=== PATIENT | male | born 1950 | race Caucasian/White ===

== ENCOUNTER 2019-11-16 12:46 | Inpatient (IN) | payer MEDICARE, OTHER ==
[~2019-11-16] VITALS: Ht 180.3 cm; Wt 88.6 kg
[~2019-11-16 12:46] MED LIST: FINA5TAB12 PO; FLO0.4C PO; LISI10TA4 PO
[2019-11-16 13:13] LABS: BASOPHILS # (AUTO) 0.1 X10'3 (0-0.2); BASOPHILS % (AUTO) 0.8 % (0-1); EOSINOPHILS # (AUTO) 0.1 X10'3 (0-0.9); EOSINOPHILS % (AUTO) 1.3 % (0-6); HEMOGLOBIN 9.6 g/dl (14.0-17.9); LYMPHOCYTES # (AUTO) 1.2 X10'3 (1.1-4.8); LYMPHOCYTES % (AUTO) 17.6 % (21-51); MEAN CORPUSCULAR HEMOGLOBIN 30.1 PG (27.0-31.0); MEAN CORPUSCULAR HGB CONC 34.4 g/dL (33.0-36.5); MEAN CORPUSCULAR VOLUME 87.4 FL (78-98); MEAN PLATELET VOLUME 6.8 FL (7.4-10.4); MONOCYTES # (AUTO) 0.5 X10'3 (0-0.9); MONOCYTES % (AUTO) 6.8 % (2-12); NEUTROPHILS # (AUTO) 5.2 X10'3 (1.8-7.7); NEUTROPHILS % (AUTO) 73.5 % (42-75); PLATELET COUNT 125 X10'3 (140-440); RED CELL DISTRIBUTION WIDTH 14.7 % (11.5-14.5); WHITE BLOOD COUNT 7.1 X10'3 (4.5-11.0)
[2019-11-16 13:26] LABS: PARTIAL THROMBOPLASTIN TIME 31 SECONDS (22-32)
[2019-11-16 13:28] LABS: ALANINE AMINOTRANSFERASE 27 U/L (12-78); ALBUMIN 3.3 G/DL (3.4-5.0); ALBUMIN/GLOBULIN RATIO 1.2 (1.1-1.5); ALKALINE PHOSPHATASE 162 IU/L (46-116); ANION GAP 5 (8-16); ASPARTATE AMINO TRANSFERASE 30 U/L (10-37); BILIRUBIN,TOTAL 0.5 MG/DL (0.1-1.0); BLOOD UREA NITROGEN 21 MG/DL (7-18); BUN/CREATININE RATIO 15.1 (5.4-32.0); CALCIUM 8.7 MG/DL (8.5-10.1); CHLORIDE 98 MMOL/L (99-107); CREATININE 1.39 MG/DL (0.60-1.10); GLUCOSE 120 MG/DL (70-104); POTASSIUM 4.9 MMOL/L (3.5-5.1); SODIUM 129 MMOL/L (135-145); TOTAL CARBON DIOXIDE 26.3 MMOL/L (24-32); TOTAL PROTEIN 6.1 G/DL (6.4-8.2); eGFR 51 ML/MIN
[2019-11-16 13:55] LABS: UA COLLECTION TYPE FOLEY CATH
[2019-11-16 13:56] LABS: CLARITY,URINE BLOODY (Clear); COLOR,URINE RED (Yellow)
[2019-11-16] MEDS ORDERED: PER5325T PO (13:56)
[2019-11-16] MEDS ORDERED: MULT-955 PO (13:56)
[2019-11-16] MEDS ORDERED: CHOL20004 PO (13:56)
[2019-11-16 14:05] LABS: BACTERIA,URINE NONE SEEN /HPF (Neg); MUCUS STRANDS NONE SEEN /LPF (Neg); RBC,URINE TNTC /HPF (0-2); SQUAMOUS EPITHELIAL CELL,UR NONE SEEN /LPF (FEW)
[2019-11-16] MEDS ORDERED: mag hydrox/Alum hydrox/simeth 30ml oral suspension PO PRN (14:10)
[2019-11-16] MEDS ORDERED: morphine 2 MG/ML inj. syringe IV PRN ×2 (14:10)
[2019-11-16] MEDS ORDERED: magnesium hydroxide 30ml (MOM) UD suspension PO PRN (14:10)
[2019-11-16] MEDS ORDERED: ondansetron/PF 4mg/2ml inj IV PRN (14:10)
[2019-11-16] MEDS: normal saline 1000ml 1,000 ML IV SCH (14:18)
--- NOTE | 2019-11-16 15:30 | NUR ---
CBI 3000 mL in. 3000 mL out of segura.
--- NOTE | 2019-11-16 15:57 | NUR ---
Kristy Herrera Continuous Pillowcase Cutter, stated Dr. Ryan gave orders to change admit to Surgical unit without telemetry. Admit order changed per Continuous Pillowcase Cutter direction.
--- NOTE | 2019-11-16 16:34 | NUR ---
CBI 1200 mL irrigation in, 1350 mL drained.
--- NOTE | 2019-11-16 16:51 | NUR ---
1400 mL irrigation in, 2075 mL out.
--- NOTE | 2019-11-16 17:14 | NUR ---
Patient in room ED 16. I have received report from BETTY De Leon and had the opportunity to ask questions and assume patient care.
--- NOTE | 2019-11-16 17:30 | NUR ---
Pt arrived to surgical floor with 2 bags of personal belongings, via gurney. BLL, call light in reach, CBI infusing.
[2019-11-16 17:40] VITALS: BP 120/69
[2019-11-16 18:00] VITALS: BP 133/63
[2019-11-16] MEDS ORDERED: oxyCODONE/APAP 5-325mg tablet PO PRN (18:00)
--- NOTE | 2019-11-16 18:12 | NUR ---
Problems reprioritized. Patient report given, questions answered & plan of care reviewed with BETTY Castorena.
--- NOTE | 2019-11-16 18:30 | NUR ---
Patient in room [facility]. I have received report from BATSHEVA HERNÁNDEZ and had the opportunity to ask questions and assume patient care.
--- NOTE | 2019-11-16 20:30 | NUR ---
Pt c/o severe "bladder pain" f/o not draining, cbi is open full. orders reeived to irrigate now. syringe applied to segura and pulled back multiple large clots removed, large amt urine draining norris color. Irrrigated with 100 ml ns few more clots removed cbi is open and draining norris urine. pt states immediate relief. Rn at bedside. Addendum: 11/16/19 at 2239 by Kiersten White RN Amended: Links added.
[2019-11-16] MEDS: tamsulosin 0.4mg capsule PO SCH (22:08)
[2019-11-16] MEDS: acetaminophen 325mg tablet PO PRN (22:12)
[2019-11-17] VITALS (24 sets, daily range): BP systolic 93–127; BP diastolic 50–71
[2019-11-17] MEDS: normal saline 1000ml 1,000 ML IV SCH ×3 (00:17→15:52)
--- NOTE | 2019-11-17 06:30 | NUR ---
Problems reprioritized. Patient report given, questions answered & plan of care reviewed with LUCY HERNÁNDEZ.
[2019-11-17 06:38] LABS: EOSINOPHILS # (AUTO) 0.1 X10'3 (0-0.9); MONOCYTES # (AUTO) 0.5 X10'3 (0-0.9)
[2019-11-17 06:40] LABS: BASOPHILS % (AUTO) 0.5 % (0-1); HEMATOCRIT 23.1 % (42.0-52.0); HEMOGLOBIN 7.9 g/dl (14.0-17.9); LYMPHOCYTES # (AUTO) 1.5 X10'3 (1.1-4.8); LYMPHOCYTES % (AUTO) 19.9 % (21-51); MEAN CORPUSCULAR HEMOGLOBIN 30.1 PG (27.0-31.0); MEAN CORPUSCULAR HGB CONC 34.3 g/dL (33.0-36.5); MEAN CORPUSCULAR VOLUME 87.8 FL (78-98); MEAN PLATELET VOLUME 7.5 FL (7.4-10.4); MONOCYTES % (AUTO) 6.8 % (2-12); NEUTROPHILS # (AUTO) 5.3 X10'3 (1.8-7.7); NEUTROPHILS % (AUTO) 71.8 % (42-75); PLATELET COUNT 130 X10'3 (140-440); RED BLOOD COUNT 2.63 X10'6 (4.70-6.10); RED CELL DISTRIBUTION WIDTH 14.4 % (11.5-14.5); WHITE BLOOD COUNT 7.3 X10'3 (4.5-11.0)
--- NOTE | 2019-11-17 06:40 | NUR ---
Patient in room [facility]. I have received report from Daniela Suarez RN and had the opportunity to ask questions and assume patient care.
[2019-11-17 06:43] LABS: ALBUMIN 2.9 G/DL (3.4-5.0); ANION GAP 8 (8-16); BLOOD UREA NITROGEN 23 MG/DL (7-18); BUN/CREATININE RATIO 15.4 (5.4-32.0); CALCIUM 8.4 MG/DL (8.5-10.1); CHLORIDE 102 MMOL/L (99-107); CREATININE 1.49 MG/DL (0.60-1.10); GLUCOSE 94 MG/DL (70-104); POTASSIUM 4.5 MMOL/L (3.5-5.1); SODIUM 135 MMOL/L (135-145); TOTAL CARBON DIOXIDE 24.8 MMOL/L (24-32); eGFR 47 ML/MIN
[2019-11-17] MEDS: multivitamins, therapeutics tablet PO SCH (07:22)
[2019-11-17] MEDS: vitamin D (cholecalciferol) 1,000 unit tablet PO SCH (07:23)
[2019-11-17] MEDS: lisinopril 10 MG tablet PO SCH (08:02)
[2019-11-17] MEDS ORDERED: ringers solution, lacted 1,000 ML IV SCH (11:29)
[2019-11-17] MEDS ORDERED: ondansetron/PF 4mg/2ml inj IV PRN (11:30)
[2019-11-17] MEDS ORDERED: morphine 2 MG/ML inj. syringe IV PRN (11:30)
[2019-11-17] MEDS ORDERED: proCHLORperazine 10 MG/2 ml inj IV PRN (11:30)
[2019-11-17] MEDS ORDERED: meperidine/PF 25mg/ml syringe IV PRN ×3 (11:30)
[2019-11-17] MEDS ORDERED: neomy sulf/polymyxin B sulf. GU irrigation 1ml amp IR ONE (11:35)
--- NOTE | 2019-11-17 11:40 | NUR ---
Patient off the unit to OR , Accu check 93. Blood tubing primed, ready for OR to transfuse as ordered by .
[2019-11-17] MEDS ORDERED: fentaNYL/PF 50MCG/1 ML 2ML syringe ONE ×2 (12:12→13:10)
[2019-11-17] MEDS ORDERED: midazolam 2 mg/2 ml injection ONE (12:13)
[2019-11-17] MEDS ORDERED: propofol inj 20 ML IV ONE (12:13)
[2019-11-17] MEDS ORDERED: sevoflurane 250ml liquid IH ONE (12:14)
[2019-11-17] MEDS ORDERED: ceFAZolin 1000mg inj ONE ×2 (12:35)
[2019-11-17] MEDS ORDERED: iohexol 300 MG/1 ML 50ml polymer ONE (12:49)
[2019-11-17] MEDS ORDERED: diatrizoate meglumine 300mg/ml (30%) 300ml UR ONE (13:00)
--- NOTE | 2019-11-17 13:36 | NUR ---
Received from OR via bed, accompanied by Anesthesiologist Evelio and report given by Anesthesiolgist. VS stable and mask to 10L sats 98%, 18G R AC LR at 100cc/hr. 3 way port attached to segura catheter in place with irrigation flowing, segura cath with clear fluid draining.
[2019-11-17] MEDS: morphine 4 MG/ML inj SYRINge IV PRN ×2 (14:09→14:27)
--- NOTE | 2019-11-17 14:21 | NUR ---
Received patient report from BETTY Burk. Patient will be returning to room 360 A.
--- NOTE | 2019-11-17 14:46 | NUR ---
Report called to receiving nurse. Transferred via bed. Belongings remains in patient room. Anisa RN at bedside to receive patient. Special Issues communicated to receiving nurse. Pt oriented, BLL call light within reach and all I/O r/t irrigation discussed with RN. Chart at bedside.
--- NOTE | 2019-11-17 17:00 | NUR ---
Dr. Ryan ordered for unit of blood from earlier today to be given.
--- NOTE | 2019-11-17 18:37 | NUR ---
Problems reprioritized. Patient report given, questions answered & plan of care reviewed with Kristina RN.
[2019-11-17] MEDS: tamsulosin 0.4mg capsule PO SCH (21:55)
[2019-11-18] VITALS: BP 99/59
[2019-11-18] MEDS: acetaminophen 325mg tablet PO PRN (00:19)
[2019-11-18 04:00] VITALS: BP 104/59
[2019-11-18] MEDS: normal saline 1000ml 1,000 ML IV SCH (04:17)
[2019-11-18 06:08] LABS: ALBUMIN 2.7 G/DL (3.4-5.0); ANION GAP 7 (8-16); BLOOD UREA NITROGEN 19 MG/DL (7-18); BUN/CREATININE RATIO 13.4 (5.4-32.0); CALCIUM 8.5 MG/DL (8.5-10.1); CHLORIDE 105 MMOL/L (99-107); CREATININE 1.42 MG/DL (0.60-1.10); GLUCOSE 103 MG/DL (70-104); POTASSIUM 4.7 MMOL/L (3.5-5.1); SODIUM 137 MMOL/L (135-145); TOTAL CARBON DIOXIDE 25.2 MMOL/L (24-32); eGFR 50 ML/MIN
[2019-11-18 06:10] LABS: BASOPHILS % (AUTO) 0.4 % (0-1); EOSINOPHILS # (AUTO) 0.1 X10'3 (0-0.9); EOSINOPHILS % (AUTO) 1.3 % (0-6); HEMATOCRIT 24.4 % (42.0-52.0); HEMOGLOBIN 8.4 g/dl (14.0-17.9); LYMPHOCYTES # (AUTO) 1.5 X10'3 (1.1-4.8); LYMPHOCYTES % (AUTO) 18.5 % (21-51); MEAN CORPUSCULAR HEMOGLOBIN 31.1 PG (27.0-31.0); MEAN CORPUSCULAR HGB CONC 34.3 g/dL (33.0-36.5); MEAN CORPUSCULAR VOLUME 90.6 FL (78-98); MEAN PLATELET VOLUME 7.3 FL (7.4-10.4); MONOCYTES # (AUTO) 0.5 X10'3 (0-0.9); MONOCYTES % (AUTO) 5.9 % (2-12); NEUTROPHILS # (AUTO) 5.9 X10'3 (1.8-7.7); NEUTROPHILS % (AUTO) 73.9 % (42-75); PLATELET COUNT 123 X10'3 (140-440); RED BLOOD COUNT 2.69 X10'6 (4.70-6.10)
[2019-11-18 08:00] VITALS: BP 106/55
[2019-11-18 08:21] VITALS: BP_SYST 106
[2019-11-18] MEDS: multivitamins, therapeutics tablet PO SCH (08:21)
[2019-11-18] MEDS: vitamin D (cholecalciferol) 1,000 unit tablet PO SCH (08:21)
[2019-11-18] MEDS: lisinopril 10 MG tablet PO SCH (08:21)
--- NOTE | 2019-11-18 10:14 | NUR ---
Roshni with [facility] would like a call when we know when patient is to be discharged so they can set up a warehouse driver. [phone]
--- NOTE | 2019-11-18 11:00 | NUR ---
CALLED GUNJAN AT [facility] TO NOTIFY THAT PT WILL BE DISCHARGED BY 1230. GUNJAN SAID THEY WERE NOT SURE IF THEY WOULD HAVE TRANSIT AVAILABLE AND SAID THEY WOULD CALL THIS RN BACK.
--- NOTE | 2019-11-18 12:00 | NUR ---
CALLED [facility] FOR PT. TRANSPORT. NO ANSWER. LEFT VOICEMAIL FOR RETURN PHONE CALL FROM GUNJAN.
--- NOTE | 2019-11-18 13:30 | NUR ---
Pt. discharged at 1330.
--- NOTE | 2019-11-18 13:30 | NUR ---
Discharge paperwork reviewed with pt. No new prescriptions ordered. Pt. gave good verbal and demonstrative feedback on catheter care. Educated on follow care. pt. states he has an appointment already scheduled with his urologist, Edgar Mckeon in [place], [place] on the this month for a prostrate biopsy. He think he can follow up about his catheter at that time, but was recommended to call their office Wednesday to get clarification. Pt. agrees to call Wednesday. He has no questions. IV DC'd, pressure bandage applied... no s/sx bleeding noted. Ride arranged with Roshni at [facility]. Pt. disgruntled about this being the second time he has had to pay 250 dollar transport bill, but agreed to pay. Pt. escorted out of hospital with all of his belongings.
== END 2019-11-18 13:30 | disposition home or self-care (01) | DRG 669 ==
LOC: ER 12:47 → UNDOADMIN 14:07 → ED HOLD 14:07 → SUR 3N 17:26 → ED HOLD 17:26
PROVIDERS: ADMIT Family Medicine; ATTEND Family Medicine
PROC: 0TCB8ZZ Extirpation of Matter from Bladder, Via Natural or Artificial Opening Endoscopic (ICD-10-PCS; 2019-11-17)
PROC: 30233N1 Transfusion of Nonautologous Red Blood Cells into Peripheral Vein, Percutaneous Approach (ICD-10-PCS; 2019-11-17)
PROC: 0T5B8ZZ Destruction of Bladder, Via Natural or Artificial Opening Endoscopic (ICD-10-PCS; principal; 2019-11-17 12:14)
DX: C79.11 Secondary malignant neoplasm of bladder (principal); E87.1 Hypo-osmolality and hyponatremia; D62 Acute posthemorrhagic anemia; Z60.2 Problems related to living alone; R31.9 Hematuria, unspecified; N18.3 Chronic kidney disease, stage 3 (moderate); I12.9 Hypertensive chronic kidney disease with stage 1 through stage 4 chronic kidney disease, or unspecified chronic kidney disease; N40.0 Benign prostatic hyperplasia without lower urinary tract symptoms; R31.0 Gross hematuria; Z91.041 Radiographic dye allergy status; Z79.899 Other long term (current) drug therapy
CPT/HCPCS: 36415; 36430; 76000; 80048; 80053; 81001; 82948; 85025; 85610; 85730; 86885; 86900; 86901; 86920; 87081; 87088; 99285; A4346; A4355; A4618; A7000; G0378; J0690; J2175; J2250; J2270; J2704; J3010; J7030; J7120; P9016; Q9958; Q9967